=== PATIENT | male | born 1980 | race Caucasian/White ===

== ENCOUNTER 2018-10-15 20:17 | Emergency (ER) | payer BC ==
[~2018-10-15] VITALS: Ht 185.4 cm; Wt 97.3 kg
[2018-10-15 20:27] VITALS: Ht 185.4 cm; Wt 97.3 kg
[2018-10-15] MEDS ORDERED: SINGULAIR10 MG PO (20:31)
[2018-10-15] MEDS ORDERED: VOLTAREN75 MG PO (21:18)
[2018-10-15] MEDS ORDERED: PREDNISONE20 MG PO (21:18)
[2018-10-15] MEDS ORDERED: ROBAXIN500 MG PO (21:18)
[2018-10-15 21:48] VITALS: BP 137/77
== END 2018-10-15 21:49 | disposition home or self-care (01) ==
LOC: D.ER 20:17
DX: S49.92XA Unspecified injury of left shoulder and upper arm, initial encounter (principal); S49.91XA Unspecified injury of right shoulder and upper arm, initial encounter; Y93.17 Activity, water skiing and wake boarding; Y93.89 Activity, other specified; Y92.89 Other specified places as the place of occurrence of the external cause